=== PATIENT | male | born 1980 | race Caucasian/White ===

== ENCOUNTER 2024-06-21 14:12 | Emergency (ER) | payer MEDICARE, MEDICAID ==
[~2024-06-21] VITALS: Ht 190.5 cm; Wt 126.2 kg
[2024-06-21] MEDS ORDERED: IBUP-864 PO (16:38)
[2024-06-21] MEDS ORDERED: METH-798 PO (16:38)
[2024-06-21 16:47] VITALS: BP 148/88; PULSE 78; RESP 16; TEMP 98.2; O2SAT 98
== END 2024-06-21 16:50 | disposition home or self-care (01) ==
LOC: ER 14:13
DX: S13.4XXA Sprain of ligaments of cervical spine, initial encounter (principal); F07.81 Postconcussional syndrome; Z88.0 Allergy status to penicillin; Z88.2 Allergy status to sulfonamides; V89.2XXA Person injured in unspecified motor-vehicle accident, traffic, initial encounter; Y93.89 Activity, other specified; Y92.89 Other specified places as the place of occurrence of the external cause; Y99.8 Other external cause status
CPT/HCPCS: 99283